=== PATIENT | male | born 1990 | race Caucasian/White ===

== ENCOUNTER 2024-01-23 22:41 | Emergency (ER) | payer OTHER ==
--- NOTE | 2024-01-23 23:32 | ER ---
Nurse's Notes [facility] Name: Mohan Phelps Age: 33 yrs Sex: Male : 1990 Arrival Date: 01/23/2024 Time: 22:41 Bed 7 Private MD: Diagnosis: Poison elias, cellulitis Presentation: 01/22 23:06 Chief complaint: Patient states: reports right knee pain and possible poison elias on cp4 legs and arms. Coronavirus screen: Client denies travel out of the [place] in the last 14 days. At this time, the client does not indicate any symptoms associated with coronavirus-19. Ebola Screen: Patient negative for fever greater than or equal to 101.5 degrees Fahrenheit, and additional compatible Ebola Virus Disease symptoms Patient denies exposure to infectious person. Patient denies travel to an Ebola-affected area in the 21 days before illness onset. No symptoms or risks identified at this time. Initial Sepsis Screen: Does the patient meet any 2 criteria? HR > 90 bpm. No. Patient's initial sepsis screen is negative. Does the patient have a suspected source of infection? No. Patient's initial sepsis screen is negative. Risk Assessment: Do you want to hurt yourself or someone else? Patient reports no desire to harm self or others. Onset of symptoms was January 22, 2024. 23:06 Method Of Arrival: Ambulatory 4 23:06 Acuity: SINCERE 4 cp4 Triage Assessment: 23:08 General: Appears in no apparent distress. comfortable, Behavior is calm, cooperative, cp4 appropriate for age. Pain: Complains of pain in right knee Pain does not radiate. Pain currently is 3 out of 10 on a pain scale. EENT: No signs and/or symptoms were reported regarding the EENT system. Neuro: Level of Consciousness is awake, alert, obeys commands, Oriented to person, place, time, situation. Cardiovascular: Patient's skin is warm and dry. Respiratory: Airway is patent Respiratory effort is even, unlabored. GI: No signs and/or symptoms were reported involving the gastrointestinal system. : No signs and/or symptoms were reported regarding the genitourinary system. Derm: Reports rash on arms and legs. Musculoskeletal: No signs and/or symptoms reported regarding the musculoskeletal system. Historical: - Allergies: 23:08 No Known Allergies; cp4 - Home Meds: 23:08 Depakote 500 mg Oral tablet 2 tabs 2 times per day [Active]; cp4 - PMHx: 23:08 epilepsy; cp4 - Immunization history:: Adult Immunizations up to date. - Infectious Disease History:: Denies. - Social history:: Smoking status: Patient denies any tobacco usage or history of. Screenin:11 [facility] ED Fall Risk Assessment (Adult) History of falling in the last 3 months, cp4 including since admission No falls in past 3 months (0 pts) Confusion or Disorientation No (0 pts) Intoxicated or Sedated No (0 pts) Impaired Gait No (0 pts) Mobility Assist Device Used No (0 pt) Altered Elimination No (0 pt) Score/Fall Risk Level 0 - 2 = Low Risk Oriented to surroundings, Maintained a safe environment, Assessed \T\ reinforced patient's understanding of fall precautions, Hourly rounding (assess needs \T\ fall precautionary measures) done. Abuse screen: Denies threats or abuse. Nutritional screening: No deficits noted. Tuberculosis screening: No symptoms or risk factors identified. Assessment: 23:11 Reassessment: No changes from previously documented assessment. cp4 Vital Signs: 23:06 BP 137 / 78; Pulse 93; Resp 18; Temp 98; Pulse Ox 100% ; Weight 95.25 kg; Height 6 ft. cp4 4 in. ; Pain 06/30; 01/23 00:05 BP 135 / 76; Pulse 96; Resp 18; Pulse Ox 99% ; cp4 01/22 23:06 Body Mass Index 25.56 (95.25 kg, 193.04 cm) cp4 01/22 23:06 Pain Scale: Adult cp4 ED Course: 01/22 22:46 Patient arrived in ED. gm2 22:52 Randy Gordon MD is Attending Physician. sp3 23:06 Pratibha Martin is Primary Nurse. cp4 23:08 Triage completed. cp4 23:08 Arm band placed on right wrist. Patient placed in waiting room. cp4 23:11 Bed in low position. Call light in reach. Side rails up X 1. cp4 23:11 No provider procedures requiring assistance completed. cp4 01/23 00:05 Provided Education on: poison elias. cp4 00:05 Patient did not have IV access during this emergency room visit. cp4 Administered Medications: 10/02 23:43 Drug: MethylPREDNISolone Sodium Succinate IM 125 mg IM once Route: IM; Site: right cp4 ventrogluteal; 01/23 00:07 Follow up: Response: No adverse reaction cp4 Medication: 01/22 23:11 VIS not applicable for this client. cp4 Outcome: 23:32 Discharge ordered by . sp3 01/23 00:05 Discharged to home ambulatory, cp4 Condition: stable Discharge instructions given to patient, Instructed on discharge instructions, follow up and referral plans. medication usage, Demonstrated understanding of instructions, follow-up care, medications, Prescriptions given X 2, 00:06 Patient left the ED. cp4 Signatures: Randy Gordon MD MD sp3 Pratibha Martin cp4 Karley Davies [facility]
--- NOTE | 2024-01-23 23:32 | EDPHYS ---
Physician Documentation [facility] Name: Mohan Phelps Age: 33 yrs Sex: Male : 1990 Arrival Date: 01/23/2024 Time: 22:41 Bed 7 Private MD: ED Physician Randy Gordon HPI: 01/22 23:28 This 33 yrs old Male presents to ER via Ambulatory with complaints of Knee Pain, Rash. sp3 23:28 33-year-old male with history of epilepsy now presents to the ED with poison lelo of sp3 bilateral lower extremities with right knee greater than left knee and left elbow area. Patient states he has been outside doing yard work and has been exposed to it and has had similar experiences in the past. He is taking OTC Benadryl which has helped some but due to his job he had to wear pants. He is also an MRSA carrier he is concerned he may have a secondary MRSA infection due to the open skin. He denies any fever, chest pain, shortness of breath, abdominal pain, vomiting, diarrhea any other concerning findings. Remainder of ROS negative.. Historical: - Allergies: 23:08 No Known Allergies; cp4 - Home Meds: 23:08 Depakote 500 mg Oral tablet 2 tabs 2 times per day [Active]; cp4 - PMHx: 23:08 epilepsy; cp4 - Immunization history:: Adult Immunizations up to date. - Infectious Disease History:: Denies. - Social history:: Smoking status: Patient denies any tobacco usage or history of. ROS: 23:29 Constitutional: Negative for fever, chills, and weight loss, Eyes: Negative for injury, sp3 pain, redness, and discharge, Neck: Negative for injury, pain, and swelling, Cardiovascular: Negative for chest pain, palpitations, and edema, Respiratory: Negative for shortness of breath, cough, wheezing, and pleuritic chest pain, Abdomen/GI: Negative for abdominal pain, nausea, vomiting, diarrhea, and constipation, Back: Negative for injury and pain, Neuro: Negative for headache, weakness, numbness, tingling, and seizure, 23:29 All other systems are negative, Exam: 23:29 Constitutional: This is a well developed, well nourished patient who is awake, alert, sp3 and in no acute distress. Head/Face: Normocephalic, atraumatic. Neck: Trachea midline, no thyromegaly or masses palpated, and no cervical lymphadenopathy. Supple, full range of motion without nuchal rigidity, or vertebral point tenderness. No Meningismus. Chest/axilla: Normal chest wall appearance and motion. Nontender with no deformity. No lesions are appreciated. Cardiovascular: Regular rate and rhythm with a normal S1 and S2. No gallops, murmurs, or rubs. Normal PMI, no JVD. No pulse deficits. Respiratory: Lungs have equal breath sounds bilaterally, clear to auscultation and percussion. No rales, rhonchi or wheezes noted. No increased work of breathing, no retractions or nasal flaring. Abdomen/GI: Soft, non-tender, with normal bowel sounds. No distension or tympany. No guarding or rebound. No evidence of tenderness throughout. Back: No spinal tenderness. No costovertebral tenderness. Full range of motion. Neuro: Awake and alert, GCS 15, oriented to person, place, time, and situation. Cranial nerves II-XII grossly intact. Motor strength 5/5 in all extremities. Sensory grossly intact. Cerebellar exam normal. Normal gait. Psych: Awake, alert, with orientation to person, place and time. Behavior, mood, and affect are within normal limits. 23:29 Skin: Open wounds anterior knees bilaterally and left lateral elbow consistent with mild sloughing and poison lelo exposure. Possible cellulitis on the right knee mild in nature also present. No vesicles or other concerning findings. Distal neurovascular exam normal all 4 extremities.. Vital Signs: 23:06 BP 137 / 78; Pulse 93; Resp 18; Temp 98; Pulse Ox 100% ; Weight 95.25 kg; Height 6 ft. cp4 4 in. ; Pain 06/30; 01/23 00:05 BP 135 / 76; Pulse 96; Resp 18; Pulse Ox 99% ; cp4 01/22 23:06 Body Mass Index 25.56 (95.25 kg, 193.04 cm) cp4 01/22 23:06 Pain Scale: Adult cp4 MDM: 01/22 22:57 Patient medically screened. sp3 23:29 Data reviewed: vital signs, nurses notes. ED course: 33-year-old male with poison lelo sp3 and possible secondary cellulitis and a known MRSA colonization patient. Will administer Solu-Medrol 125 mg IM x 1 with no prednisone at home and discharged on Bactrim and clindamycin p.o. for home. Follow-up with PCP as needed.. Administered Medications: 23:43 Drug: MethylPREDNISolone Sodium Succinate IM 125 mg IM once Route: IM; Site: right cp4 ventrogluteal; 01/23 00:07 Follow up: Response: No adverse reaction cp4 Disposition Summary: 01/23/24 23:32 Discharge Ordered Notes: Location: Home sp3 Condition: Stable sp3 Diagnosis - Poison lelo, cellulitis sp3 Followup: sp3 - With: Private Physician - When: Upon discharge from the Emergency Department - Reason: Continuance of care Discharge Instructions: - Discharge Summary Sheet sp3 - Poison Lelo Dermatitis sp3 Forms: - Medication Reconciliation Form sp3 - Antibiotic Education sp3 - Prescription Opioid Use sp3 - Patient Portal Instructions sp3 - Leadership Thank You Letter sp3 Prescriptions: - Clindamycin HCl 300 mg Oral Capsule - take 1 capsule ORAL route every 6 hours for 10 days; 40 capsule; Refills: 0, sp3 Product Selection Permitted - Bactrim DS 800-160 mg Oral Tablet - take 1 tablet ORAL route every 12 hours for 7 days; 14 tablet; Refills: 0, sp3 Product Selection Permitted Signatures: Randy Gordon MD MD sp3 Pratibha Martin cp4
[2024-01-23] MEDS ORDERED: METHYLPREDNISOLONE 125 MG INJ ONE (23:34)
[2024-01-24 16:24] VITALS: TEMP 98
[2024-01-24 16:25] VITALS: BP 135/76; O2SAT 99
== END 2024-01-24 00:06 | disposition home or self-care (01) ==
LOC: ER 22:41
DX: L23.7 Allergic contact dermatitis due to plants, except food (principal); L03.115 Cellulitis of right lower limb
CPT/HCPCS: 96372; 99284; J2919

== ENCOUNTER 2024-08-23 11:35 | Emergency (ER) | payer BC ==
--- NOTE | 2024-08-23 11:54 | ER ---
Nurse's Notes [facility] Name: Mohan Phelps Age: 34 yrs Sex: Male : 1990 Arrival Date: 08/23/2024 Time: 11:35 Bed 15 Private MD: Diagnosis: Allergic contact dermatitis due to plants, except food;Acute upper respiratory infection, unspecified Presentation: 08/23 11:46 Chief complaint: Patient states: has had a chest cold and cough, diff breathing X 3 iw days, also has a poison elias rash since . Coronavirus screen: At this time, the client does not indicate any symptoms associated with coronavirus-19. Ebola Screen: No symptoms or risks identified at this time. Initial Sepsis Screen: Does the patient meet any 2 criteria? No. Patient's initial sepsis screen is negative. Does the patient have a suspected source of infection? No. Patient's initial sepsis screen is negative. Risk Assessment: Do you want to hurt yourself or someone else? Patient reports no desire to harm self or others. Onset of symptoms was August 20, 2024. 11:46 Method Of Arrival: Ambulatory iw 11:46 Acuity: SINCERE 4 iw Historical: - Allergies: 11:57 No Known Allergies; iw - PMHx: 11:47 epilepsy; iw - Immunization history:: Adult Immunizations unknown. - Infectious Disease History:: Denies. - Social history:: Smoking status: Patient denies any tobacco usage or history of. Screenin:18 [facility] ED Fall Risk Assessment (Adult) History of falling in the last 3 months, db including since admission No falls in past 3 months (0 pts) Confusion or Disorientation No (0 pts) Intoxicated or Sedated No (0 pts) Impaired Gait No (0 pts) Mobility Assist Device Used No (0 pt) Altered Elimination No (0 pt) Score/Fall Risk Level 0 - 2 = Low Risk Oriented to surroundings, Maintained a safe environment. Abuse screen: Denies threats or abuse. Denies injuries from another. Nutritional screening: No deficits noted. Tuberculosis screening: No symptoms or risk factors identified. Assessment: 12:18 Reassessment: Patient appears in no apparent distress at this time. Patient and/or db family updated on plan of care and expected duration. Pain level reassessed. Patient is alert, oriented x 3, equal unlabored respirations, skin warm/dry/pink. General: Appears in no apparent distress. comfortable, Behavior is calm, cooperative. Pain: Denies pain. Neuro: Level of Consciousness is awake, alert, obeys commands, Oriented to person, place, time, situation. Cardiovascular: No deficits noted. Capillary refill < 3 seconds. Respiratory: Airway is patent Respiratory effort is even, unlabored, Respiratory pattern is regular, symmetrical. Respiratory: Breath sounds are clear bilaterally. Derm: Rash noted that is raised. Vital Signs: 11:46 BP 157 / 94; Pulse 78; Resp 16; Pulse Ox 100% on R/A; iw ED Course: 11:38 Patient arrived in ED. im 11:39 Estee Busby F[facility]-C is [facility]. kb 11:40 Edgardo Welch MD is Attending Physician. kb 11:47 Triage completed. iw 11:55 Esme Goodwin, RN is Primary Nurse. db 11:57 Arm band placed on. iw 12:18 Patient has correct armband on for positive identification. Bed in low position. Call db light in reach. Side rails up X 1. Provided Education on: DISCHARGE AND FOLLOWUP. Warm blanket given. Pillow given. 12:18 No provider procedures requiring assistance completed. Patient did not have IV access db during this emergency room visit. Administered Medications: 11:55 Drug: Dexamethasone IM 10 mg IM once Route: IM; Site: right ventrogluteal; db 12:16 Follow up: Response: No adverse reaction db 11:55 Drug: Famotidine PO 20 mg PO once Route: PO; db 12:16 Follow up: Response: No adverse reaction db Medication: 12:18 VIS not applicable for this client. db Outcome: 11:54 Discharge ordered by . kb 12:18 Discharged to home ambulatory, db 12:18 Condition: stable 12:18 Discharge instructions given to patient, Instructed on discharge instructions, follow up and referral plans. Prescriptions given X 2, 12:20 Patient left the ED. db Signatures: Estee Busby FNP-C FNP-Ckb Williams, Irene RN RN iw Esme Goodwin, RN RN db Syl Terrell im
--- NOTE | 2024-08-23 11:54 | EDPHYS ---
Physician Documentation [facility] Name: Mohan Phelps Age: 34 yrs Sex: Male : 1990 Arrival Date: 08/23/2024 Time: 11:35 Bed 15 Private MD: ED Physician Edgardo Welch HPI: 08/23 11:42 This 34 yrs old Male presents to ER via Unassigned with complaints of Rash, Cough, kb Congestion. 11:42 Pt is a 34 year old male cough, congestion, shortness of breath, fever, sore throat kb that started 4 days ago. Reports today symptoms are better. Also reports poison lelo to bilateral arms and genital area that started 3 days ago. States he has bad reactions to poison lelo and it spreads quickly. . Historical: - Allergies: 11:57 No Known Allergies; iw - PMHx: 11:47 epilepsy; iw - Immunization history:: Adult Immunizations unknown. - Infectious Disease History:: Denies. - Social history:: Smoking status: Patient denies any tobacco usage or history of. ROS: 11:44 Constitutional: As per HPI kb Exam: 11:44 Constitutional: This is a well developed, well nourished patient who is awake, alert, kb and in no acute distress. Head/Face: Normocephalic, atraumatic. ENT: Moist Mucous membranes Cardiovascular: Regular rate Respiratory: Respirations even and unlabored. No increased work of breathing. Talking in full sentences Abdomen/GI: Soft, non-tender. No distention MS/ Extremity: Pulses equal, no cyanosis. Neurovascular intact. Full, normal range of motion. Neuro: Awake and alert, GCS 15, oriented to person, place, time, and situation. 11:44 Skin: rash a moderate rash is noted, consistent with contact dermatitis, on the face, pelvis, right arm and left arm, Vital Signs: 11:46 BP 157 / 94; Pulse 78; Resp 16; Pulse Ox 100% on R/A; iw MDM: 11:40 Medical Screening Exam initiated kb 11:45 Differential diagnosis: impetigo, allergic reaction, parasite infection. Data reviewed: kb vital signs, nurses notes. Counseling: I had a detailed discussion with the patient and/or guardian regarding the historical points, exam findings, and any diagnostic results supporting the discharge/admit diagnosis, the need for outpatient follow up, a family practitioner, to return to the emergency department if symptoms worsen or persist or if there are any questions or concerns that arise at home. 11:53 Test considered but Not performed: X-ray: chest xray considered but lungs clear kb bilaterally, resp even and unlabored, oxygen saturation 100% on room air. Administered Medications: 11:55 Drug: Dexamethasone IM 10 mg IM once Route: IM; Site: right ventrogluteal; db 12:16 Follow up: Response: No adverse reaction db 11:55 Drug: Famotidine PO 20 mg PO once Route: PO; db 12:16 Follow up: Response: No adverse reaction db Disposition Summary: 08/23/24 11:54 Discharge Ordered Notes: Location: Home kb Condition: Stable kb Diagnosis - Allergic contact dermatitis due to plants, except food kb - Acute upper respiratory infection, unspecified kb Followup: kb - With: Emergency Department - When: As needed - Reason: Worsening of condition Followup: kb - With: Private Physician - When: 2 - 3 days - Reason: Recheck today's complaints, Continuance of care, Re-evaluation by your physician Discharge Instructions: - Discharge Summary Sheet kb - Upper Respiratory Infection, Adult, [id number] kb - Viral Respiratory Infection, [id number] kb - Poison Lelo Dermatitis, [id number] kb Forms: - Medication Reconciliation Form kb - Antibiotic Education kb - Prescription Opioid Use kb - Patient Portal Instructions kb - Leadership Thank You Letter kb Prescriptions: - Pepcid 20 mg Oral Tablet - take 1 tablet ORAL route every 12 hours for 5 days; 10 tablet; Refills: 0, kb Product Selection Permitted - Prednisone 20 mg Oral Tablet - take 1 tablet ORAL route once daily for 5 days; 5 tablet; Refills: 0, Product kb Selection Permitted Addendum: 08/24/2024 22:47 Co-signature as Attending Physician, Edgardo Welch MD I agree with the assessment and c garcia plan of care. Signatures: Estee Busby FNP-[place] ROBBINS-Edgardo Castro MD MD cha Williams, Irene, RN BASILIA iw Esme Goodwin RN RN db
[2024-08-23] MEDS ORDERED: FAMOTIDINE 20 MG TAB ONE (12:02)
[2024-08-23] MEDS ORDERED: dexAMETHasone 10 MG/ML VIAL ONE (12:02)
[2024-08-23 13:14] VITALS: BP 157/94; O2SAT 100
== END 2024-08-23 12:20 | disposition home or self-care (01) ==
LOC: ER 11:35
DX: L23.7 Allergic contact dermatitis due to plants, except food (principal); J06.9 Acute upper respiratory infection, unspecified
CPT/HCPCS: 96372; 99284; J1100

== ENCOUNTER 2024-12-10 08:05 | Emergency (ER) | payer BC, OTHER ==
[2024-12-10] MEDS ORDERED: NA CHLORIDE 0.9% 1,000 ML ONE (08:35)
[2024-12-10] MEDS ORDERED: ASPIRIN 81 MG CHEWABLE TABLET ONE (08:35)
[2024-12-10 08:40] LABS: Absolute Lymphocytes (CBC) 2.4 K/uL (0.7-4.9); Hematocrit 44.9 % (39.6-49.0); Hemoglobin 15.7 g/dL (13.6-17.9); MCH 31.2 pg (27.0-35.0); MCHC 34.9 g/dL (32.0-36.0); MCV 89.4 fL (80-100); MPV 8.2 fL (7.6-11.3); Nucleated RBC Absolute Count 0.0 (0-0); Nucleated Red Blood Cells % 0.0 % (0-0); RBC Red Blood Cell Count 5.03 M/uL (4.33-5.43); White Blood Count 5.60 thou/uL (4.3-10.9)
[2024-12-10 08:46] LABS: PT Prothrombin Time 11.5 SECONDS (10-13.0); Protime INR 1.02
[2024-12-10 09:01] LABS: ALT/SGPT 20 U/L (16-61); AST/SGOT < 10 U/L (15-37); Albumin 3.8 g/dL (3.4-5.0); Albumin/Globulin Ratio 1.0 (1.1-1.8); Alkaline Phosphatase 43 U/L (45-117); Anion Gap 10.1 mEq/L (5.0-15.0); BUN Blood Urea Nitrogen 13 mg/dL (7-18); Bilirubin Indirect, Calculated 0.2 mg/dL (0.2-0.8); Globulin 4.0 g/dL (2.3-3.5); Glucose Level 69 mg/dL (74-106); Magnesium 1.8 mg/dL (1.6-2.4); NT PRO-BNP 26 pg/mL (<125); Potassium 4.1 mEq/L (3.5-5.1); Troponin High Sensitivity 3.4 pg/mL (<58.9)
--- NOTE | 2024-12-10 09:55 | RAD REPORT ---
EXAM: Chest Single View HISTORY: 34 years Male CHEST PAIN COMPARISON: No prior exams FINDINGS: LUNGS/PLEURA: The lungs are clear. No pleural effusions or pneumothorax. No pulmonary edema. CARDIAC/MEDIASTINUM: The cardiac silhouette is within normal limits. UPPER ABDOMEN: No significant abnormality. BONES: No acute abnormality. LINES/TUBES/OTHER: N/A IMPRESSION: No evidence of acute cardiopulmonary disease.
--- NOTE | 2024-12-10 10:01 | EDPHYS ---
Physician Documentation [facility] Name: Mohan Phelps Age: 34 yrs Sex: Male : 1990 Arrival Date: 12/10/2024 Time: 08:05 Bed 6 Private MD: ED Physician Edgardo Welch HPI: 12/10 08:20 This 34 yrs old Male presents to ER via Unassigned with complaints of Chest Tightness, sb4 Headache, Nausea, Tongue numbness. 08:20 Patient states that he had an episode of chest pain/tightness and a "hypertensive sb4 headache "while exercising at the gym 2 days ago. He ended up having a regular appointment with his PCP later that day who told him to come to the ED if that ever happened again. He states that today he had just got onto treadmill and was going to an exercise machine and had the same symptoms happen. Does not have any history of hypertension. Only medical history of epilepsy in which she takes Depakote, last had labs done 2 days ago which were within normal limits. Historical: - Allergies: 08:17 No Known Allergies; ll1 - PMHx: 08:17 epilepsy; ll1 - Immunization history:: Adult Immunizations up to date. - Infectious Disease History:: Denies. - Social history:: Smoking status: Patient denies any tobacco usage or history of. ROS: 08:20 Constitutional: Negative for fever, chills, and weight loss, sb4 08:20 Cardiovascular: Positive for chest pain, 08:20 Abdomen/GI: Positive for nausea, 08:20 Neuro: Positive for headache, 08:20 All other systems are negative, Exam: 08:20 Head/Face: Normocephalic, atraumatic. Eyes: Extra-ocular motions intact. Periorbital sb4 areas with no swelling, redness, or edema. ENT: Mucous membranes moist. Cardiovascular: Regular rate and rhythm with a normal S1 and S2. Respiratory: No increased work of breathing, no retractions or nasal flaring. Abdomen/GI: Soft, non-tender, no distension. Skin: Warm, dry with normal turgor. Normal color with no rashes, no lesions, and no evidence of cellulitis. 08:20 Constitutional: The patient appears in no acute distress, alert, awake, Vital Signs: 08:26 BP 169 / 88; Pulse 81; Resp 17; Temp 98.1; Pulse Ox 99% on R/A; Weight 113.4 kg; Height ll1 6 ft. 2 in. ; Pain 7/10; 10:36 BP 128 / 78; Pulse 61; Resp 16; Pulse Ox 100% ; bp 08:26 Body Mass Index 32.10 (113.40 kg, 187.96 cm) ll1 08:26 Pain Scale: Adult ll1 MDM: 08:11 Medical Screening Exam initiated thomas 08:22 Differential diagnosis: Cardiac arrhythmia, ACS, hyperthyroidism, hypertension, sb4 hypovolemia, electrolyte abnormality. 09:37 Data reviewed: vital signs, nurses notes, lab test result(s), EKG, radiologic studies, sb4 and as a result, I will discharge patient. Scoring Tools HEART Score: History: ECG: Age: Risk Factors: No Risk Factors Known (0), Troponin: Total Score = 1. Counseling: I had a detailed discussion with the patient and/or guardian regarding the historical points, exam findings, and any diagnostic results supporting the discharge/admit diagnosis, the presence of at least one elevated blood pressure reading (>120/80) during this emergency department visit, lab results, radiology results, the need for outpatient follow up, a resourcing consultant, to return to the emergency department if symptoms worsen or persist or if there are any questions or concerns that arise at home. Special discussion: Based on the patient's history, exam, and Dx evaluation, there is no indication for emergent intervention or inpatient Tx. It is understood by the patient/guardian that if the Sx's persist or worsen they need to return immediately for re-evaluation. 09:49 Independent interpretation of the following test(s) in the Emergency Department X-Ray: sb4 My interpretation is My interpretation of the chest x-ray is possible cardiomegaly, no pleural effusions or evidence of pneumonia. 10:20 ED course: Symptoms have improved, headache is still there but better. Blood pressure sb4 has also improved. Workup is unremarkable. Recommended abstaining from significant physical activity until evaluated by cardiology. Patient understands is in agreement with the plan of care. 12/10 08:19 Order name: Basic Metabolic Panel; Complete Time: 09:04 sb4 12/10 08:19 Order name: CBC with Diff; Complete Time: 08:44 sb4 08/20 08:19 Order name: LFT's; Complete Time: 09:04 sb4 12/10 08:19 Order name: Magnesium; Complete Time: 09:04 sb4 12/10 08:19 Order name: NT PRO-BNP; Complete Time: 09:04 sb4 12/10 08:19 Order name: PT-INR; Complete Time: 08:49 sb4 12/10 08:19 Order name: Troponin HS; Complete Time: 09:04 sb4 12/10 08:23 Order name: TSH; Complete Time: 09:04 sb4 12/10 08:19 Order name: XRAY Chest (1 view); Complete Time: 09:56 sb4 12/10 08:19 Order name: Cardiac monitoring; Complete Time: 08:31 sb4 12/10 08:19 Order name: EKG - Nurse/Tech; Complete Time: 08:31 sb4 12/10 08:19 Order name: IV Saline Lock; Complete Time: 08:31 sb4 12/10 08:19 Order name: Labs collected and sent; Complete Time: 08:31 sb4 12/10 08:19 Order name: O2 Per Protocol; Complete Time: 08:31 sb4 12/10 08:19 Order name: O2 Sat Monitoring; Complete Time: 08:31 sb4 12/10 09:04 Order name: PO challenge; Complete Time: 09:15 sb4 EC:26 Rate is 77 beats/min. Rhythm is regular, Sinus arrythmia. TN interval is normal at 182 sb4 msec. QRS interval is normal at 100 msec. QT interval is normal at 350 msec. No Q waves. T waves are Normal. No ST changes noted. Clinical impression: Sinus arrythmia and No evidence of ischemia. Interpreted by me. Reviewed by me. Administered Medications: 08:38 Drug: Aspirin PO Chewable Tablet 324 mg PO once; 81 mg tablets x 4 Route: PO; ph 10:36 Follow up: Response: No adverse reaction bp 08:38 Drug: NS 0.9% IV 1000 ml IV at 1 bolus Per protocol; to be given as a bolus over 60 ph minutes Route: IV; Rate: 1 bolus; Site: right forearm; 10:36 Follow up: IV Status: Completed infusion bp Disposition: 14:39 Co-signature as Attending Physician, Edgardo Welch MD I agree with the assessment and thomas plan of care. Disposition Summary: 12/10/24 10:00 Discharge Ordered Notes: Location: Home sb4 Problem: an ongoing problem sb4 Symptoms: have improved sb4 Condition: Stable sb4 Diagnosis - Chest pain, unspecified sb4 - Elevated blood-pressure reading, without diagnosis of hypertension sb4 Followup: sb4 - With: Alex Light MD - When: 2 - 3 days - Reason: Further diagnostic work-up, Recheck today's complaints, Re-evaluation by your physician Discharge Instructions: - Discharge Summary Sheet sb4 - Nonspecific Chest Pain, Adult sb4 - How to Take Your Blood Pressure, [id number] sb4 Forms: - Work release form sb4 - Patient Portal Instructions sb4 - Leadership Thank You Letter sb4 Signatures: Dispatcher [employer] Edgardo Skelton MD MD cha Hall, Patricia RN RN Miguel Persaud RN RN Jony Rainey RN RN ll1 Soniya Butler PA-C PANataliya sb4 Corrections: (The following items were deleted from the chart) 08:16 08:11 Allergies: seafood; ll1 ll1 08:16 08:11 PMHx: epilepsy; ll1 ll1 08:16 08:11 PMHx: Diabetes mellitus; ll1 ll1 08:16 08:11 PSHx: None; ll1 ll1 08:16 08:11 Social history: Smoking status: Patient reports the use of cigarette tobacco ll1 products, smokes one-half pack cigarettes per day, Reported history of juuling and/or vaping. ll1 08:19 08:19 BASIC METABOLIC PANEL+C.LAB.BRZ ordered. EDMS EDMS 08:19 08:19 CBC+H.LAB.BRZ ordered. EDMS EDMS 08:19 08:19 HEPATIC FUNCTION+C.LAB.BRZ ordered. EDMS EDMS 08:19 08:19 MAGNESIUM+C.LAB.BRZ ordered. EDMS EDMS 08:19 08:19 PROBNP+C.LAB.BRZ ordered. EDMS EDMS 08:19 08:19 PROTIME (+INR)+COAG.LAB.BRZ ordered. EDMS EDMS 08:19 08:19 Troponin High Sensitivity+C.LAB.BRZ ordered. EDMS EDMS 08:20 08:20 Chest Single View+RAD.RAD.BRZ ordered. EDMS EDMS
--- NOTE | 2024-12-10 10:01 | ER ---
Nurse's Notes [facility] Name: Mohan Phelps Age: 34 yrs Sex: Male : 1990 Arrival Date: 12/10/2024 Time: 08:05 Bed 6 Private MD: Diagnosis: Chest pain, unspecified;Elevated blood-pressure reading, without diagnosis of hypertension Presentation: 12/10 08:26 Chief complaint: Patient states: Episodes of chest tightness, ESQUIVEL, nausea when working ll1 out on Sunday and then again today. Coronavirus screen: Client denies travel out of the [place] in the last 14 days. cough unrelated to allergies, fatigue, headache, Client presents with at least one sign or symptom that may indicate coronavirus-19. Standard/surgical mask placed on the client. Ebola Screen: Patient denies travel to an Ebola-affected area in the 21 days before illness onset. Initial Sepsis Screen: Does the patient meet any 2 criteria? No. Patient's initial sepsis screen is negative. Does the patient have a suspected source of infection? No. Patient's initial sepsis screen is negative. Risk Assessment: Do you want to hurt yourself or someone else? Patient reports no desire to harm self or others. Onset of symptoms was December 08, 2024. 08:26 Method Of Arrival: Ambulatory 1 08:26 Acuity: SINCERE 3 ll1 Triage Assessment: 08:15 General: Appears in no apparent distress. Behavior is cooperative, appropriate for age, bp anxious. Pain: Complains of pain in chest. EENT: No deficits noted. Neuro: No deficits noted. Cardiovascular: Reports chest pain, Rhythm is sinus rhythm. Respiratory: No deficits noted. GI: No signs and/or symptoms were reported involving the gastrointestinal system. : No signs and/or symptoms were reported regarding the genitourinary system. Derm: No deficits noted. Musculoskeletal: No deficits noted. Historical: - Allergies: 08:17 No Known Allergies; ll1 - PMHx: 08:17 epilepsy; ll1 - Immunization history:: Adult Immunizations up to date. - Infectious Disease History:: Denies. - Social history:: Smoking status: Patient denies any tobacco usage or history of. Screenin:35 [facility] ED Fall Risk Assessment (Adult) History of falling in the last 3 months, bp including since admission No falls in past 3 months (0 pts) Confusion or Disorientation No (0 pts) Intoxicated or Sedated No (0 pts) Impaired Gait No (0 pts) Mobility Assist Device Used No (0 pt) Altered Elimination No (0 pt) Score/Fall Risk Level 0 - 2 = Low Risk Oriented to surroundings. Abuse screen: Denies threats or abuse. Denies injuries from another. Nutritional screening: No deficits noted. Tuberculosis screening: No symptoms or risk factors identified. Assessment: 08:15 General: SEE TRIAGE NOTE. Pain: Pain does not radiate. Pain began. bp Vital Signs: 08:26 BP 169 / 88; Pulse 81; Resp 17; Temp 98.1; Pulse Ox 99% on R/A; Weight 113.4 kg; Height ll1 6 ft. 2 in. ; Pain 7/10; 10:36 BP 128 / 78; Pulse 61; Resp 16; Pulse Ox 100% ; bp 08:26 Body Mass Index 32.10 (113.40 kg, 187.96 cm) ll1 08:26 Pain Scale: Adult ll1 ED Course: 08:09 Patient arrived in ED. im 08:09 Soniya Butler PA-C is PHCP. sb4 08:09 Edgardo Welch MD is Attending Physician. sb4 08:11 Arm band placed on Patient placed in an exam room, on a stretcher. ll1 08:12 Miguel Torres, BASILIA is Primary Nurse. bp 08:28 Triage completed. ll1 08:30 Initial lab(s) drawn, by me, sent to lab. EKG done, by ED staff, reviewed by Soniya Butler PA-C. Inserted saline lock: 20 gauge in right forearm, using aseptic technique. Blood collected. Flushed with 10 mL NS. 09:48 XRAY Chest (1 view) In Process Unspecified. EDMS 10:00 Alex Light MD is Referral Physician. sb4 10:35 Patient has correct armband on for positive identification. Provided Education on: NA. bp Client placed on continuous cardiac and pulse oximetry monitoring. NIBP monitoring applied. youth nutritional monitor on. Pulse ox on. NIBP on. 10:35 No provider procedures requiring assistance completed. IV discontinued, intact, bp bleeding controlled, No redness/swelling at site. Pressure dressing applied. Patient maintains SpO2 saturation greater than 95% on room air. Administered Medications: 08:38 Drug: Aspirin PO Chewable Tablet 324 mg PO once; 81 mg tablets x 4 Route: PO; ph 10:36 Follow up: Response: No adverse reaction bp 08:38 Drug: NS 0.9% IV 1000 ml IV at 1 bolus Per protocol; to be given as a bolus over 60 ph minutes Route: IV; Rate: 1 bolus; Site: right forearm; 10:36 Follow up: IV Status: Completed infusion bp Medication: 10:36 VIS not applicable for this client. bp Outcome: 10:00 Discharge ordered by MD. king 10:35 Discharged to home ambulatory, with family, bp 10:35 Condition: stable 10:35 Discharge instructions given to patient, Instructed on discharge instructions, follow up and referral plans. Demonstrated understanding of instructions, follow-up care, 10:37 Patient left the ED. bp Signatures: Dispatcher [employer] Raquel Warren RN RN Miguel Torres RN RN bp Lewis, Lynsay, RN RN ll1 Soniya Butler PANataliya PASyl Kaufman Corrections: (The following items were deleted from the chart) 08:16 08:11 Allergies: seafood; ll1 ll1 08:16 08:11 PMHx: epilepsy; ll1 ll1 08:16 08:11 PMHx: Diabetes mellitus; ll1 ll1 08:16 08:11 PSHx: None; ll1 ll1 08:16 08:11 Social history: Smoking status: Patient reports the use of cigarette tobacco ll1 products, smokes one-half pack cigarettes per day, Reported history of juuling and/or vaping. ll1
[2024-12-10 16:47] VITALS: TEMP 98.1
[2024-12-10 16:49] VITALS: BP 128/78; O2SAT 100
== END 2024-12-10 10:37 | disposition home or self-care (01) ==
LOC: ER 08:05
DX: R07.89 Other chest pain (principal); R03.0 Elevated blood-pressure reading, without diagnosis of hypertension; G40.909 Epilepsy, unspecified, not intractable, without status epilepticus
CPT/HCPCS: 85025; 80048; 36415; 83735; 85610; 80076; 84443; 84484; 83880; 71045; J7030; 93005